=== PATIENT | male | born 1980 | race Caucasian/White ===

== ENCOUNTER 2018-07-10 12:34 | Emergency (ER) | payer OTHER ==
[2018-07-10 12:40] VITALS: BP 135/81
[2018-07-10] MEDS ORDERED: FLUORESCEIN SODIUM 1 MG STRIP OP ONE (12:45)
[2018-07-10] MEDS ORDERED: PROPARACAINE 0.5% 15 ML OPHT DROP ONE (12:45)
--- NOTE | 2018-07-10 13:07 | EDPHY ---
H & P Stated Complaint: pt states got metal bristle in r eye thurs having blurred vision Time Seen by Provider: 07/10/18 13:00 HPI/ROS: CHIEF COMPLAINT: Decreased vision HISTORY OF PRESENT ILLNESS: This is a generally healthy 38-year-old male who was working on an automobile 2 days ago, using a wire brush. He was not wearing eye protection. One of the bristles of the brush broke loose and struck him in the right eye. He is not sure whether the bursal penetrated his eye or not. He is of the impression that it struck his eye and then angled up into his upper eyelid. He pulled it out of the eyelid. There was some tearing but no drainage from the eye. His main complaint today is of decreased vision from the right eye. He says he feels as if there is a fog or a mist over his right eye. REVIEW OF SYSTEMS: A ten system review of systems was performed and is negative with the exception of the items mentioned in the HPI. Past medical history: Negative Past surgical history: Negative Social history: Self employed in construction. Nonsmoker. General Appearance: Alert. Vital signs reviewed. Blood pressure 135/81 at triage. Visual Acuity: noted from Nurse's notes. OS 20/20, OD 20/50, OU 20/20. Pupils: Right eye EOMI, OD pupil 2-3 mm minimally reactive, OS briskly reactive Lids: no edema or swelling, no foreign body with lid eversion, no lid injury noted. Skin: no proptosis, no periorbital erythema or swelling, no vesicles Conjunctivae: Mild right eye injection, no discharge, negative Talib's sign. There is a small, 1 mm, conjunctival irregularity at approximately 2:00 p.m. OD. Cornea: exam with fluorescein shows no uptake Anterior chamber: normal, no hyphema or hypopyon ENT, Mouth: Mucous membranes are moist, no oropharyngeal erythema or edema. Neck: No lymphadenopathy, supple. Respiratory: Lungs are clear to auscultation; no wheezes, rales, or rhonchi. Cardiovascular: Regular rate and rhythm. Skin: Warm and dry, no rashes on exposed skin, normal color. Neurological: Alert and oriented. Moving all four extremities easily and equally. Facial sensation intact to light touch. Facial expressions symmetric. Psychiatric: Normal affect. - Personal History Current Tetanus Diphtheria and Acellular Pertussis (TDAP): Yes - Medical/Surgical History Hx Asthma: No Hx Chronic Respiratory Disease: No Hx Diabetes: No Hx Cardiac Disease: No Hx Renal Disease: No Hx Cirrhosis: No Hx Alcoholism: No Hx HIV/AIDS: No Hx Splenectomy or Spleen Trauma: No Other PMH: denies - Social History Smoking Status: Never smoked Constitutional: Initial Vital Signs Temperature (C) 36.6 C 07/10/18 12:37 Heart Rate 56 L 07/10/18 12:37 Respiratory Rate 19 07/10/18 12:37 Blood Pressure 135/81 H 07/10/18 12:37 O2 Sat (%) 98 07/10/18 12:37 O2 Delivery Mode Room Air Allergies/Adverse Reactions: No Known Allergies Allergy (Unverified 07/10/18 12:37) Home Medications: Medication Instructions Recorded Tobramycin/Dexameth [Tobradex opht 1 drops RTEYE Q2 #1 opht.btl 07/10/18 drops (*)] Medical Decision Making ED Course/Re-evaluation: 38-year-old who injured right eye with a metal bristle of a brush that he was using while working on a car. Aside from a small conjunctival irregularity ( negative Talib's sign) and evidence of a traumatic iritis, I do not find other injury, such as an open globe. I spoke with Dr. Demetrius Chaves on the phone. CT scan of the orbits is recommended and was performed. No foreign body identified and no evidence of other severe injury to the eye. The patient will follow up with Dr. Chaves within the next 1-2 days. Danger signs have been reviewed with him. He is being prescribed TobraDex. We discussed the use of safety goggles--he usually uses them, but was not wearing them in this instance. Differential Diagnosis: I considered a differential diagnosis that includes but is not limited to open globe, corneal abrasion, retained foreign body, lid injury, hyphema. Departure - Departure Disposition: Home, Routine, Self-Care Clinical Impression: Traumatic iritis Condition: Good Instructions: Iritis (ED) Additional Instructions: Use the Tobradex, 1 drop in right eye, every 2 hr while awake. Follow up with Dr. Demetrius Chaves, correctional cook. I am providing his office number. If you are feeling better tomorrow you should call his office on Thursday and arrange to be seen on Thursday. If you are feeling worse tomorrow or feel that your vision has decreased or if you develop pain, you should contact his office and arrange to be seen by him tomorrow. Referrals: Demetrius Chaves MD [Medical Doctor] - As per Instructions Prescriptions: Tobramycin/Dexameth [Tobradex opht drops (*)] 1 drops RTEYE Q2 #1 opht.btl
== END 2018-07-10 14:13 | disposition home or self-care (01) ==
DX: H20.041 Secondary noninfectious iridocyclitis, right eye (principal); S05.91XA Unspecified injury of right eye and orbit, initial encounter; W20.8XXA Other cause of strike by thrown, projected or falling object, initial encounter; Y93.89 Activity, other specified

== ENCOUNTER 2019-01-01 09:51 | Emergency (ER) | payer OTHER ==
[2019-01-01] MEDS ORDERED: NS 1,000 ML IV ONE (10:21)
[2019-01-01] MEDS ORDERED: ONDANSETRON 4 MG/2 ML VIAL IVP ONE (10:21)
--- NOTE | 2019-01-01 10:24 | EDPHY ---
H & P Stated Complaint: gen abd pain diarrhea, fever at home since last night - Medical/Surgical History Hx Asthma: No Hx Chronic Respiratory Disease: No Hx Diabetes: No Hx Cardiac Disease: No Hx Renal Disease: No Hx Cirrhosis: No Hx Alcoholism: No Hx HIV/AIDS: No Hx Splenectomy or Spleen Trauma: No Other PMH: denies - Social History Smoking Status: Never smoked Time Seen by Provider: 01/01/19 10:13 HPI/ROS: CHIEF COMPLAINT: Nausea vomiting diarrhea, left upper quadrant pain times 48 hr HISTORY OF PRESENT ILLNESS: 38-year-old male, generally healthy, no history of abdominal surgeries, complaining of nausea vomiting diarrhea, subjective fever, and left upper quadrant pain for the past 48 hr. He has returned from family vacation few days ago where they were drinking more than usual amounts of hard alcohol. No lower abdominal pain. No testicular pain. No back pain. No international travel. No untreated water sources. No trauma. PRIMARY CARE PROVIDER: REVIEW OF SYSTEMS: 10 systems reviewed and negative with the exception of the elements mentioned in the history of present illness PAST MEDICAL & SURGICAL HISTORY: No pertinent medical or surgical history . No history of abdominal surgeries SOCIAL HISTORY: Non smoker PHYSICAL EXAM (Prior to examination, patient consented to physical exam, hands were washed and my usual and customary physical exam procedures followed) 1) GENERAL: Well-developed, well-nourished, alert and oriented. Appears nontoxic. 2) HEAD: Normocephalic, atraumatic 3) HEENT: Pupils equal, round, reactive to light bilaterally. Sclera anicteric. Nasopharynx, oropharynx, clear, no lesions. Dry mucous membranes. 4) NECK: Full range of motion, no meningeal signs. 5) LUNGS: Clear auscultation bilaterally, no wheezes, no rhonchi, no retractions. 6) HEART: Regular rate and rhythm, no murmur, no heave, no gallop. 7) ABDOMEN: No guarding, tender to palpation epigastrium left upper quadrant, negative McBurney's, negative Benitez's, negative Rovsing's, negative peritoneal sign, I am unable to elicit any lower abdominal pain. 8) MUSCULOSKELETAL: Moving all extremities, no focal areas of tenderness, no obvious trauma. No peripheral edema or discoloration. 9) BACK: No CVA tenderness, no midline vertebral tenderness, no fluctuance, no step-off, no obvious trauma, no visual or palpable abnormality. 10) SKIN: No rash, no petechiae. 11) Psychiatric: Patient is oriented X 3, there is no agitation. DIFFERENTIAL DIAGNOSIS: [ My differential diagnosis includes, but is not limited to, acute appendicitis, acute cholecystitis, bowel obstruction, acute pancreatitis, testicular torsion, gastritis and urinary tract infection. The patient understands that this diagnosis is provisional and can never be 100% accurate. This is a partial list of diagnoses considered. These considerations are based on history, physical exam, past history and reassessment. (Becky Monsalve) Constitutional: Initial Vital Signs Temperature (C) 37 C 01/01/19 09:58 Heart Rate 78 01/01/19 09:58 Respiratory Rate 18 01/01/19 09:58 Blood Pressure 137/93 H 01/01/19 09:58 O2 Sat (%) 98 01/01/19 09:58 O2 Delivery Mode Room Air Allergies/Adverse Reactions: No Known Allergies Allergy (Unverified 07/10/18 12:37) Home Medications: Medication Instructions Recorded Famotidine [Pepcid] 20 mg PO BID #10 tablet 01/01/19 Pantoprazole Sodium [Protonix 40mg 40 mg PO DAILY #30 tab 01/01/19 (RX)] Medical Decision Making ED Course/Re-evaluation: 10:23 a.m.: At this time I think that acute appendicitis is less than likely in absence of any lower abdominal pain either subjectively or objectively. Will check laboratory studies, administer IV fluid, administer analgesia and antiemetic and re-evaluated. Will hold on imaging at this time. Care of patient under supervision of secondary supervising physician Dr Willian Antonio with whom I discussed case. 11:25 a.m.: Re-evaluation. Discussed with patient's laboratory results. He is complaining of a mild ache in his epigastrium as well as continued diarrhea. No nausea or vomiting. Will administer GI cocktail see if this provides relief. Doubt acute pancreatitis. Doubt acute cholecystitis. Doubt acute appendicitis in the absence of any abdominal pain at repeat exam at this time including no McBurney's point pain and negative Benitez sign. 12:20 p.m.: Re-evaluation after GI cocktail. Feeling significant improvement. Negative Benitez sign. At this time I think that acute pancreatitis, acute cholecystitis are less than likely in this patient. Discussed possible peptic ulcer/stomach pathology especially given his increase in alcohol use while on vacation few days ago. I am initiating PPI, Pepcid, dietary alcohol avoidance recommendations for the patient. Recommend follow up with Gastroenterology. At This time I do not think that further diagnostic studies are indicated. I do not think that hospitalization is indicated. He may necessitate outpatient EGD to be determined by Gastroenterology. (Becky Monsalve) I did not see this patient while he was in the emergency department. However his care was discussed with the PA while the patient was in the department. I agree with treatment plan and management (Willian Antonio) - Data Points Laboratory Results: Laboratory Results 01/01/19 10:28 01/01/19 10:28 Medications Given: Discontinued Medications Al Hydroxide/Mg Hydroxide (Maalox Susp) 30 ml PO ONCE ONE Stop: 01/01/19 11:26 Last Admin: 01/01/19 11:41 Dose: 30 ml Hyoscyamine Sulfate (Levsin, Hyomax-Sl) 0.25 mg PO ONCE ONE Stop: 01/01/19 11:26 Last Admin: 01/01/19 11:39 Dose: 0.25 mg Sodium Chloride (Ns) 1,000 mls @ 0 mls/hr IV EDNOW ONE; Wide Open PRN Reason: Protocol Stop: 01/01/19 10:22 Last Admin: 01/01/19 10:34 Dose: 1,000 mls Lidocaine (Lidocaine 2% Viscous) 15 ml PO ONCE ONE Stop: 01/01/19 11:26 Last Admin: 01/01/19 11:41 Dose: 15 ml Morphine Sulfate (Morphine) 6 mg IVP EDNOW ONE Stop: 01/01/19 10:22 Last Admin: 01/01/19 10:35 Dose: 6 mg Ondansetron HCl (Zofran) 4 mg IVP EDNOW ONE Stop: 01/01/19 10:22 Last Admin: 01/01/19 10:35 Dose: 4 mg Departure - Departure Disposition: Home, Routine, Self-Care Clinical Impression: Abdominal pain Condition: Good Instructions: Epigastric Pain (ED) Additional Instructions: Recommend you avoid alcohol, spicy foods, soda, caffeinated products and similar. Return to the ER if you develop new or worsening symptoms. Referrals: Elisa Pabon MD [Medical Doctor] - 5-7 days, call for appt. Prescriptions: Famotidine [Pepcid] 20 mg PO BID #10 tablet Pantoprazole Sodium [Protonix 40mg (RX)] 40 mg PO DAILY #30 tab
[2019-01-01 10:43] LABS: PLATELET COUNT 183 10^3/uL (150-400)
[2019-01-01] MEDS ORDERED: HYOSCYAMINE SULFATE 0.125 MG TAB PO ONE (11:25)
[2019-01-01] MEDS ORDERED: MAG HYDROX/AL HYDROX/SIMETH 30 ML UDCUP PO ONE (11:25)
[2019-01-01] MEDS ORDERED: LIDOCAINE 2% VISCOUS 15 ML UDCUP PO ONE (11:25)
[2019-01-01 12:30] VITALS: BP 127/79
== END 2019-01-01 12:30 | disposition home or self-care (01) ==
DX: R10.12 Left upper quadrant pain (principal); R11.2 Nausea with vomiting, unspecified; R19.7 Diarrhea, unspecified; E86.9 Volume depletion, unspecified
CPT/HCPCS: 96374; J2270; J2405